=== PATIENT | male | born 1950 ===

== ENCOUNTER 2021-11-09 15:53 | Outpatient (CLI) | payer OTHER | END 2021-11-09 15:57 | disposition home or self-care (01) | LOC: RAD 15:53 | PROVIDERS: ATTEND Internal Medicine Rheumatology | DX: M15.0 Primary generalized (osteo)arthritis (principal) ==

== ENCOUNTER 2025-04-08 09:34 | Outpatient (CLI) | payer OTHER | END 2025-04-08 09:40 | disposition home or self-care (01) | LOC: RAD 09:34 | PROVIDERS: ATTEND Internal Medicine Rheumatology | DX: I10 Essential (primary) hypertension (principal); M15.0 Primary generalized (osteo)arthritis ==

== ENCOUNTER 2025-04-09 07:42 | Outpatient (CLI) | payer OTHER | END 2025-04-09 07:44 | disposition home or self-care (01) | LOC: SONOGRAMA 07:42 | PROVIDERS: ATTEND Internal Medicine Rheumatology | DX: K40.00 Bilateral inguinal hernia, with obstruction, without gangrene, not specified as recurrent (principal); K80.00 Calculus of gallbladder with acute cholecystitis without obstruction ==